=== PATIENT | male | born 1980 | race Caucasian/White ===

== ENCOUNTER 2024-11-20 22:01 | Emergency (ER) | payer BC ==
[2024-11-20] MEDS: cefTRIAXone 1 GM in Lidocaine 1% 2.1 ML IM ONE (22:43)
== END 2024-11-20 23:22 | disposition home or self-care (01) ==
LOC: MW.ED 22:01
DX: A38.9 Scarlet fever, uncomplicated (principal); J03.90 Acute tonsillitis, unspecified; Z79.899 Other long term (current) drug therapy
CPT/HCPCS: 87651; 96372; 99284; J0696; J2003